=== PATIENT | male | born 1985 | race Caucasian/White ===

== ENCOUNTER → 2024-02-12 17:45 | Outpatient (REF) | payer OTHER, SELFPAY | LOC: RAD 17:45 | PROVIDERS: ATTENDING PHYSICIAN Physician Assistant Medical | DX: Z04.2 Encounter for examination and observation following work accident (principal); Z03.823 Encounter for observation for suspected inserted (injected) foreign body ruled out; W31.1XXA Contact with metalworking machines, initial encounter | CPT/HCPCS: 70030 ==

== ENCOUNTER → 2024-02-13 08:11 | Outpatient (REF) | payer OTHER, SELFPAY | LOC: MRI 3T 08:11 | PROVIDERS: ATTENDING PHYSICIAN Physician Assistant Medical | DX: M25.561 Pain in right knee (principal); M25.569 Pain in unspecified knee | CPT/HCPCS: 73721 ==